=== PATIENT | male | born 1960 | race African-American/Black ===

== ENCOUNTER 2025-06-10 20:57 | Emergency (ER) | payer OTHER | END 2025-06-11 01:22 | disposition home or self-care (01) | LOC: CSHERS 20:57 | DX: M79.662 Pain in left lower leg (principal); I11.0 Hypertensive heart disease with heart failure; I50.9 Heart failure, unspecified; E11.9 Type 2 diabetes mellitus without complications; I48.91 Unspecified atrial fibrillation ==